=== PATIENT | female | born 1930 | race Caucasian/White ===

== ENCOUNTER 2022-01-13 06:37 | Day surgery (SDC) | payer OTHER, BC ==
[2022-01-12 16:36] VITALS: BMI 20.1
[2022-01-13] MEDS ORDERED: TROPICAMIDE 1% OPHTH SOLN 15 ML BOTTLE ONE (06:58)
[2022-01-13] MEDS ORDERED: OFLOXACIN 0.3% OPHTHALMIC SOLUTION 5 ML BOTTLE OD SCH (07:00)
[2022-01-13] MEDS ORDERED: KETOROLAC TROMETHAMINE 0.5% EYE DROP 1 DROP DROPS OD SCH (07:00)
[2022-01-13] MEDS ORDERED: TROPICAMIDE 0.5% OPHTHALMIC SOLN 15 ML BOTTLE OD ONE ×3 (07:00→07:10)
[2022-01-13] MEDS ORDERED: CYCLOPENTOLATE HCL 1% OPHTH SOLN 2 ML BOTTLE OD SCH (07:00)
[2022-01-13] MEDS ORDERED: TROPICAMIDE 1% OPHTH SOLN 15 ML BOTTLE OD SCH (07:00)
[2022-01-13] MEDS ORDERED: PHENYLEPHRINE 2.5% OPHTH SOLN 15 ML BOTTLE OD SCH (07:00)
[2022-01-13] MEDS ORDERED: EPINEPHrine/PF 1 MG/1 ML (1:1,000) AMPULE ONE (07:04)
[2022-01-13] MEDS ORDERED: BACITRACIN/POLYMYXIN OPH OINT 3.5 GM TUBE ONE (07:04)
[2022-01-13] MEDS ORDERED: EPI-SHUGARCAINE (EPINEPHRINE 0.025% & LIDOCAINE-PF 0.75%) 4ML ONE (07:04)
[2022-01-13] MEDS ORDERED: BETAXOLOL HCL 0.25% OPHTHALMIC 10 ML DROPSBTL ONE (07:04)
[2022-01-13] MEDS ORDERED: PHENYLEPHRINE/KETOROLAC 4 ML VIAL IO ONE (07:04)
[2022-01-13] MEDS ORDERED: TETRACAINE 0.5% OPHTH SOLN 2 ML BOTTLE ONE (07:05)
[2022-01-13] MEDS ORDERED: BSS (NA/CA/MG/K) BALANCED SALT SOLUTION OPHTH SOLN 15 ML BOTTLE ONE (07:05)
[2022-01-13] MEDS ORDERED: OFLOXACIN 0.3% OPHTHALMIC SOLUTION 5 ML BOTTLE OD ONE ×2 (07:05→07:10)
[2022-01-13] MEDS ORDERED: NEO/POLYMYX B SULF/DEXAMETH OPHTHALMIC 5ML BOTTLE ONE (07:05)
[2022-01-13] MEDS ORDERED: PHENYLEPHRINE 2.5% OPHTH SOLN 15 ML BOTTLE OD ONE ×2 (07:05→07:10)
[2022-01-13] MEDS ORDERED: CYCLOPENTOLATE HCL 1% OPHTH SOLN 2 ML BOTTLE OD ONE ×2 (07:05→07:10)
[2022-01-13] MEDS ORDERED: ACETYLCHOLINE 1:100 INTRA-OCUL 20 MG/2 ML KIT ONE (07:05)
[2022-01-13] MEDS ORDERED: KETOROLAC TROMETHAMINE 0.5% EYE DROP 1 DROP DROPS OD ONE ×2 (07:05→07:10)
[2022-01-13] MEDS ORDERED: POVIDONE-IODINE 5% OPHTHALMIC PREP 30 ML SOLUTION ONE (07:05)
[2022-01-13] MEDS ORDERED: MIDAZOLAM HCL 2 MG/2 ML SINGLE DOSE VIAL ONE (07:38)
[2022-01-13] MEDS ORDERED: ACETAMINOPHEN 325 MG TABLET (FP) PO PRN (09:40)
[2022-01-13 09:53] VITALS: PULSE 74; RESP 18; TEMP 97.6
[2022-01-13 10:17] VITALS: BP 130/79
== END 2022-01-13 10:20 | disposition home or self-care (01) ==
LOC: FASU 06:37
PROVIDERS: ATTEND Ophthalmology
PROC: 08RJ3JZ Replacement of Right Lens with Synthetic Substitute, Percutaneous Approach (ICD-10-PCS; principal; 2022-01-13 08:55)
DX: H25.89 Other age-related cataract (principal)
CPT/HCPCS: 66984; V2632; J1097

== ENCOUNTER 2022-01-27 10:36 | Day surgery (SDC) | payer OTHER, BC ==
[2022-01-12 16:55] VITALS: BMI 20.1
[2022-01-27] MEDS ORDERED: OFLOXACIN 0.3% OPHTHALMIC SOLUTION 5 ML BOTTLE ONE (10:50)
[2022-01-27] MEDS ORDERED: PHENYLEPHRINE 2.5% OPHTH SOLN 15 ML BOTTLE ONE (10:50)
[2022-01-27] MEDS ORDERED: TROPICAMIDE 1% OPHTH SOLN 15 ML BOTTLE ONE (10:50)
[2022-01-27] MEDS ORDERED: KETOROLAC TROMETHAMINE 0.5% EYE DROP 1 DROP DROPS ONE (10:50)
[2022-01-27] MEDS ORDERED: CYCLOPENTOLATE HCL 1% OPHTH SOLN 2 ML BOTTLE ONE (10:51)
[2022-01-27] MEDS: CYCLOPENTOLATE HCL 1% OPHTH SOLN 2 ML BOTTLE OS SCH ×3 (11:15→11:25)
[2022-01-27] MEDS: KETOROLAC TROMETHAMINE 0.5% EYE DROP 1 DROP DROPS OS SCH ×3 (11:15→11:25)
[2022-01-27] MEDS: TROPICAMIDE 1% OPHTH SOLN 15 ML BOTTLE OS SCH ×3 (11:15→11:25)
[2022-01-27] MEDS: PHENYLEPHRINE 2.5% OPHTH SOLN 15 ML BOTTLE OS SCH ×3 (11:15→11:25)
[2022-01-27] MEDS: OFLOXACIN 0.3% OPHTHALMIC SOLUTION 5 ML BOTTLE OS SCH ×3 (11:15→11:25)
[2022-01-27] MEDS ORDERED: EPI-SHUGARCAINE (EPINEPHRINE 0.025% & LIDOCAINE-PF 0.75%) 4ML ONE (11:23)
[2022-01-27] MEDS ORDERED: BETAXOLOL HCL 0.25% OPHTHALMIC 10 ML DROPSBTL ONE (11:23)
[2022-01-27] MEDS ORDERED: BACITRACIN/POLYMYXIN OPH OINT 3.5 GM TUBE ONE (11:23)
[2022-01-27] MEDS ORDERED: NEO/POLYMYX B SULF/DEXAMETH OPHTHALMIC 5ML BOTTLE ONE (11:24)
[2022-01-27] MEDS ORDERED: POVIDONE-IODINE 5% OPHTHALMIC PREP 30 ML SOLUTION ONE (11:24)
[2022-01-27] MEDS ORDERED: ACETYLCHOLINE 1:100 INTRA-OCUL 20 MG/2 ML KIT ONE (11:24)
[2022-01-27] MEDS ORDERED: TETRACAINE 0.5% OPHTH SOLN 2 ML BOTTLE ONE (11:24)
[2022-01-27] MEDS ORDERED: MIDAZOLAM HCL 2 MG/2 ML SINGLE DOSE VIAL ONE (12:32)
[2022-01-27] MEDS ORDERED: ACETAMINOPHEN 325 MG TABLET (FP) PO PRN (13:24)
[2022-01-27 13:42] VITALS: RESP 18; TEMP 97.9
[2022-01-27 14:14] VITALS: BP 125/84; PULSE 75
== END 2022-01-27 14:15 | disposition home or self-care (01) ==
LOC: FASU 10:36
PROVIDERS: ATTEND Ophthalmology
PROC: 08RK3JZ Replacement of Left Lens with Synthetic Substitute, Percutaneous Approach (ICD-10-PCS; principal; 2022-01-27 12:41)
DX: H25.9 Unspecified age-related cataract (principal)
CPT/HCPCS: 66984; V2632